=== PATIENT | male | born 1965 | race Caucasian/White ===

== ENCOUNTER → 2018-09-20 14:49 | Outpatient (CLI) | payer BC ==
[2018-09-20 15:50] VITALS: BMI 27.3
[2018-09-20 15:59] LABS: EOSINOPHILS 6.3 % (0-7); HEMATOCRIT 45.3 % (42.0-54.0); HEMOGLOBIN 15.8 g/dL (13.5-17.5); IMMATURE GRANULOCYTES 3.5 % (0-5); LYMPHOCYTES 39.5 % (15-50); MCH 29.8 pg (26.0-34.0); MCHC 34.9 g/dL (31.0-37.0); MCV 85.3 fL (80.0-100.0); MEAN PLATELET VOLUME 9.6 fL (7.4-10.4); MONOCYTES 11.1 % (2-11); NEUTROPHILS 38.6 % (40-80); PLATELET COUNT 160 10x3/uL (130-400); RBC 5.31 10x6/uL (4.20-6.10); RDW 13.4 % (11.5-14.5)
[2018-09-20 16:12] LABS: ALBUMIN 3.8 g/dL (3.4-5.0); ALKALINE PHOSPHATASE 55 U/L (46-116); ALT (SGPT) 44 U/L (10-68); BILIRUBIN - TOTAL 0.35 mg/dL (0.2-1.3); CALC OSMOLALITY 280 mosm/kg (275-300); CALCIUM 9.1 mg/dL (8.5-10.1); CARBON DIOXIDE 28.4 mmol/L (21.0-32.0); CHLORIDE - SERUM 105 mmol/L (98-107); GLUCOSE 98 mg/dL (74-106); PROTEIN - SERUM 8.1 g/dL (6.4-8.2); SODIUM 141 mmol/L (136-145); UREA NITROGEN 12 mg/dL (7-18); eGFR NON AFRICAN AMERICAN 83 mL/min (90-120)
[2018-09-21 10:15] LABS: HEPATITIS C ANTIBODY <0.1 S/CO RAT (0.0-0.9)
== END | disposition home or self-care (01) ==
LOC: D.LAB 14:49
PROVIDERS: ATTEND Nurse Practitioner
DX: L40.9 Psoriasis, unspecified (principal); Z79.899 Other long term (current) drug therapy

== ENCOUNTER 2018-09-20 15:49 | Emergency (ER) | payer BC ==
[2018-09-20 15:50] VITALS: BP 110/66; BMI 27.3
== END 2018-09-20 16:08 | disposition left against medical advice (07) ==
LOC: D.ER 15:49
DX: G40.909 Epilepsy, unspecified, not intractable, without status epilepticus (principal)